=== PATIENT | male | born 1960 | race American Indian/Alaskan Native ===

== ENCOUNTER 2021-03-01 06:45 | Day surgery (SDC) | payer OTHER ==
[2021-03-01] MEDS ORDERED: ASPIRIN EC 325 MG TAB PO NR (07:08)
[2021-03-01 07:34] LABS: Basophils # (Auto) 0.1 K/mm3 (0.0-0.1); Basophils % (Auto) 1.2 % (0.0-1.8); Eosinophils # (Auto) 0.1 K/mm3 (0.0-0.4); Eosinophils % (Auto) 1.3 % (0.0-4.3); Hematocrit 39.3 % (35.5-45.6); Hemoglobin 13.2 gm/dl (11.8-15.2); Lymphocytes # (Auto) 1.9 K/mm3 (1.2-5.4); Lymphocytes % (Auto) 23.7 % (13.4-35.0); Mean Corpuscular HGB Conc 34 % (32-34); Mean Corpuscular Volume 88 fl (84-94); Monocytes # (Auto) 0.6 K/mm3 (0.0-0.8); Monocytes % (Auto) 7.3 % (0.0-7.3); Platelet Count 253 K/mm3 (140-440); Red Blood Count 4.45 M/mm3 (3.65-5.03); Red Cell Distribution Width 12.4 % (13.2-15.2)
[2021-03-01 07:43] LABS: INR 0.91 (0.87-1.13)
[2021-03-01] MEDS ORDERED: SODIUM CHLORIDE 0.9% 500 ML 500 ML IV SCH (08:00)
[2021-03-01 08:20] VITALS: BP 155/85
[2021-03-01 08:25] LABS: BUN/Creatinine Ratio 18; Blood Urea Nitrogen 21 mg/dL (9-20); Hemolysis Index 7
--- NOTE | 2021-03-01 08:46 | Short Stay Summary ---
Short Stay Documentation Date of service: 03/01/21 - History Principal diagnosis: Chest Pain H&P: obtained from office Past Medical History: hypertension Past Surgical History: no valve replacement, no CABG, no PTCA Social history: alcohol abuse (occasional beer/liquor), no smoking - Allergies and Medications Current Medications: Allergies No Known Allergies Allergy (Unverified 03/01/21 07:05) Home Medications Medication Instructions Recorded Confirmed Last Taken Type hydroCHLOROthiazide [Hctz] 12.5 mg PO QDAY 03/01/21 03/01/21 02/28/21 18:00 History Active Medications Sodium Chloride (Nacl 0.9% 500 Ml) 500 mls @ 50 mls/hr IV DIRECT DARWIN Stop: 03/01/21 17:59 Last Admin: 03/01/21 08:06 Dose: 50 mls/hr Documented by: - Physical exam General appearance: no acute distress Integumentary: no rash HEENT: Atraumatic, EOMI, Mucous membr. moist/pink Lungs: Clear to auscultation Heart: Normal S1, Normal S2 Gastrointestinal: normal Extremities: pulses intact, No edema, normal temperature, normal color Neurological: Normal speech, Normal tone, Sensation intact - Brief post op/procedure progress note Date of procedure: 03/01/21 Pre-op diagnosis: Chest Pain Surgeon: MAL MUNIZ Estimated blood loss: none Pathology: none Condition: stable - Disposition Condition at discharge: Good Disposition: 01 HOME / SELF CARE / HOMELESS Short Stay Discharge Plan Follow up with: LEDY VALLE MD [Primary Care Provider] - 7 Days
[2021-03-01] MEDS ORDERED: MIDAZOLAM 2 MG/2 ML INJ ONE (09:06)
[2021-03-01] MEDS ORDERED: HEPARIN/NS 5000 UNIT/500ML 0 ML IR ONE (09:06)
[2021-03-01] MEDS ORDERED: HEPARIN 10,000 UNITS/10 ML VIAL ONE (09:06)
[2021-03-01] MEDS ORDERED: fentaNYL 100 MCG/2 ML INJ ONE (09:07)
[2021-03-01] MEDS ORDERED: LIDOCAINE (2%) 20 MG/1 ML VIAL 20 ML MDV INFILTRATI ONE (09:07)
[2021-03-01] MEDS ORDERED: VERAPAMIL 5 MG/2 ML INJ ONE (09:07)
--- NOTE | 2021-03-01 12:03 | Electrocardiograph Report ---
[facility] Test Date: 2021-03-01 Test Time: 07:46:34 Pat Name: MARIAH JOSUE Department: Room: Gender: M Brick Catcher: YUNIEL : 1960 Requested By: MAL MUNIZ Order Number: [id number] Reading MD: Wei Garcia Measurements Intervals [place] Rate: 54 P: 57 RI: 192 QRS: 43 QRSD: 91 T: 10 QT: 425 QTc: 402 Interpretive Statements Sinus rhythm No previous ECG available for comparison Electronically Signed On 03-01-2021 12:02:49 EST by Wei Garcia
== END 2021-03-01 06:46 | disposition home or self-care (01) ==
LOC: CATHLABREC 06:45
PROVIDERS: ATTEND Internal Medicine
DX: R94.39 Abnormal result of other cardiovascular function study (principal); Z53.8 Procedure and treatment not carried out for other reasons; I10 Essential (primary) hypertension; G47.30 Sleep apnea, unspecified; Z79.899 Other long term (current) drug therapy; Z98.890 Other specified postprocedural states
CPT/HCPCS: 36415; 80048; 85025; 85610; 85730; 93005; J7040; J1644; J2250; J3010